=== PATIENT | male | born 1950 | race Caucasian/White ===

== ENCOUNTER 2017-09-08 11:34 | Inpatient (IN) | payer MEDICARE, OTHER ==
[~2017-09-08] VITALS: Ht 172.7 cm; Wt 178.3 kg
[~2017-09-08 11:34] MED LIST: LASIX40 MG PO; LEVAQUIN500 MG PO; LEVEMIR 10100 UNIT/1 SC; LISINOPRIL-HCT1 EAC3 PO; RISPERDAL PO; SYMBICORT 160-4.6 GM IH; TESSALON PERLE100 MG; Z.0.COUMADIN10 MG PO; Z.0.DIGOXIN250 MCG PO; Z.0.FUROSEMIDE40 MG PO; Z.0.GLUCOPHAGE500 MG PO; Z.0.HUMALOG100 UNIT/ SQ; Z.0.LANTUS100 UNIT/1 SQ; Z.0.LEVEMIR 3M100 UN SQ; Z.0.LEVOTHYROXINE100; Z.0.LEVOTHYROXINE25 PO; Z.0.LISINOPRIL10 MG PO; Z.0.LISINOPRIL20 MG PO; Z.0.MULTAQ400 MG PO; Z.0.NEURONTIN300 MG PO; Z.0.SEROQUEL25 MG PO; Z.0.SOTALOL80 MG PO; Z.0.XANAX0.5 MG PO; [UNRECOGNIZED DRUG - CODE] IH; [UNRECOGNIZED DRUG - OTHER] SQ
--- NOTE | 2017-09-08 13:35 | Diagnostic Imaging Report ---
EXAMINATION: Chest, CHEST SINGLE (PORTABLE) INDICATION: Chest pain COMPARISON: Portable chest 12/04/2012 FINDINGS: Examination is limited by grid cut off of the right hemithorax. LINES: None. Heart: Normal cardiac silhouette. Vascular: The pulmonary vasculature is within normal limits. Atherosclerotic calcifications of the aortic arch. Mediastinum: No mediastinal, hilar, or axillary mass or lymphadenopathy. Lungs: No parenchymal mass. No focal consolidation. Right lung base atelectasis. Pleura: No pleural effusion. No pneumothorax. Bones: No acute osseous abnormality. Degenerative changes of the thoracic spine. Soft tissues: Normal. Impression: No acute radiographic abnormality. Signed by: Dr. Donovan Aly M.D. on 09/08/2017 1:31 PM
[2017-09-08 14:11] LABS: BASOPHILS # (AUTO) 0.1 (0.0-0.1); BASOPHILS % 0.8 % (0.0-1.0); EOSINOPHILS # (AUTO) 0.1 (0.0-0.4); EOSINOPHILS % 2.2 % (0.0-6.0); HEMOGLOBIN 12.1 g/dL (14.0-18.0); LYMPHOCYTES % 30.9 % (18.0-39.1); MEAN CORPUSCULAR HEMOGLOBIN 31.5 pg (28-32); MEAN CORPUSCULAR HGB CONC 32.7 g/dL (31-35); MEAN CORPUSCULAR VOLUME 96.4 fL (81-99); MONOCYTES # (AUTO) 0.5 (0.2-0.8); MONOCYTES % 7.4 % (4.4-11.3); NEUTROPHILS # (AUTO) 3.8 (2.1-6.9); NEUTROPHILS % 57.8 % (38.7-80.0); PLATELET COUNT 223 x10e3/uL (140-360); RED BLOOD COUNT 3.84 x10e6/uL (4.3-5.7); RED CELL DISTRIBUTION WIDTH 16.9 % (11.7-14.4)
[2017-09-08 14:22] LABS: INR 1.07; PROTHROMBIN TIME 14.5 seconds (11.9-14.5)
[2017-09-08 14:23] LABS: PARTIAL THROMBOPLASTIN TIME 36.7 seconds (23.8-35.5)
[2017-09-08 14:33] LABS: ALBUMIN 2.6 g/dL (3.5-5.0); ALBUMIN/GLOBULIN RATIO 0.6 (0.8-2.0); ANION GAP 14.2 mmol/L (8-16); CALCIUM 8.9 mg/dL (8.4-10.2); CREATININE, SERUM 1.43 mg/dL (0.72-1.25); POTASSIUM 4.2 mmol/L (3.5-5.1)
[2017-09-08] MEDS ORDERED: ELIQUIS PO (14:42)
[2017-09-08 14:59] LABS: KETONES,URINE TRACE (NEGATIVE); LEUKOCYTE ESTERASE ,URINE TRACE (NEGATIVE); NITRITE,URINE NEGATIVE (NEGATIVE); URINE UROBILINOGEN 0.2 mg/dL (0.2 - 1)
[2017-09-08 15:01] LABS: BILIRUBIN,URINE 1+ (NEGATIVE); CLARITY,URINE HAZY (CLEAR); COLOR,URINE YELLOW (YELLOW); PROTEIN,URINE DIPSTICK 1+ (NEGATIVE)
[2017-09-08] MEDS ORDERED: NORCO 10-325 T1 EACH PO (15:16)
[2017-09-08 15:18] LABS: RBC,URINE 21-50 /HPF (0-5)
[2017-09-08 15:20] LABS: AMORPHOUS SEDIMENT,URINE FEW (FEW); BACTERIA,URINE FEW /HPF; EPITHELIAL CELLS,URINE FEW /LPF
[2017-09-08] MEDS ORDERED: SODIUM CHLORIDE FLUSH 10 ML SYR INJ PRN (15:45)
[2017-09-08] MEDS ORDERED: DEXTROSE 50% SYRINGE 50 ML IV PRN (16:00)
[2017-09-08] MEDS ORDERED: HYDROCODONE/APAP 10MG-325MG TAB PO ONE (16:00)
[2017-09-08] MEDS ORDERED: LEVOFLOXACIN 500MG/D5W 100ML 100 ML IV ONE (16:15)
--- OUTSIDE RECORDS SUMMARY | 2017-09-08 16:17 | XMS REPORT ---
Author Author [facility] Address Unknown Phone Unavailable Care Team Providers Care Family Member Caretaker Name Role Phone CARINA MACIAS Unavailable Unavailable Problems This patient has no known problems. Allergies, Adverse Reactions, Alerts This patient has no known allergies or adverse reactions. Medications This patient has no known medications. Results Test Description Test Time Test Comments Text Results Atomic Results Result Comments CHEST SINGLE (PORTABLE) [place] [address] Patient Name: PAULINA LARA MR #: [id number] : 1950 Age/Sex: 67/M Req #: [id number] Adm Physician: Ordered by: CARINA MACIAS MD Report #: [id number] Location: ER Room/Bed: Procedure: [id number] DX/CHEST SINGLE (PORTABLE) Exam Date: 09/08/17 Exam Time: 1300 REPORT STATUS: Signed EXAMINATION: Chest, CHEST SINGLE (PORTABLE) INDICATION: Chest pain COMPARISON : Portable chest 12/04/2012 FINDINGS: Examination is limited by grid cut off of the right hemithorax. LINES: None. Heart: Normal cardiac silhouette. Vascular: The pulmonary vasculature is within normal limits. Atherosclerotic calcifications of the aortic arch. Mediastinum: No mediastinal, hilar, or axillary mass or lymphadenopathy. Lungs: No parenchymal mass. No focal consolidation. Right lung base atelectasis. Pleura: No pleural effusion. No pneumothorax. Bones: No acute osseous abnormality. Degenerative changes of the thoracic spine. Soft tissues: Normal. Impression: No acute radiographic abnormality. Signed by: Dr. Landon Mckenna M.D. on 09/08/2017 1:31 PM Dictated By: LANDON MCKENNA MD 1331 Transcribed By: SHAUN on 09/08/17 1331 COPY TO: CARINA MACIAS MD
[2017-09-08] MEDS: INSULIN REGULAR, HUMAN 100 UNIT/1 ML 3ML VIAL SQ SCH ×2 (16:30→22:34)
[2017-09-08] MEDS: METHYLPREDNISOLONE SOD SUCC 40 MG/ML VIAL IV SCH (16:39)
[2017-09-08 18:00] VITALS: BP 137/67
[2017-09-08] MEDS ORDERED: NYSTATIN 15 GM POWDER UD BTL TOP PRN (18:45)
[2017-09-08] MEDS ORDERED: ACETAMINOPHEN 325 MG TAB PO PRN (18:45)
[2017-09-08] MEDS ORDERED: IPRATROPIUM BROMIDE 0.02% 2.5 ML NEB NEB SCH (19:00)
[2017-09-08 19:08] VITALS: BP 137/67
[2017-09-08 19:16] VITALS: BP 137/67
[2017-09-08] MEDS: ALBUTEROL/IPRATROPIUM 3 ML NEB NEB SCH (19:34)
[2017-09-08 20:00] VITALS: BP 140/73
[2017-09-08] MEDS: ZOLPIDEM TARTRATE 5 MG TAB PO PRN (20:54)
[2017-09-08] MEDS: HYDROMORPHONE 2MG/ML INJ IV PRN (20:54)
[2017-09-08 22:32] VITALS: BP 140/73
[2017-09-09] VITALS: BP 119/62
[2017-09-09] MEDS: METHYLPREDNISOLONE SOD SUCC 40 MG/ML VIAL IV SCH ×3 (00:09→21:00)
[2017-09-09] MEDS: HYDROMORPHONE 2MG/ML INJ IV PRN ×7 (01:13→21:01)
[2017-09-09] MEDS: ALBUTEROL/IPRATROPIUM 3 ML NEB NEB SCH ×4 (01:30→19:35)
[2017-09-09 04:00] VITALS: BP 139/78
[2017-09-09] MEDS: INSULIN REGULAR, HUMAN 100 UNIT/1 ML 3ML VIAL SQ SCH ×4 (07:30→22:30)
[2017-09-09] MEDS: ONDANSETRON HCL INJ 2 MG/ML VIAL IV PRN ×2 (08:20→15:20)
[2017-09-09] MEDS ORDERED: FUROSEMIDE INJ 10 MG/ML 4 ML VIAL IV SCH (09:00)
[2017-09-09] MEDS ORDERED: HYDRALAZINE HCL 20 MG/ML VIAL IV PRN (10:30)
[2017-09-09] MEDS: NYSTATIN 15 GM POWDER UD BTL TOP SCH ×2 (10:33→17:48)
[2017-09-09 12:00] VITALS: BP 149/73
--- NOTE | 2017-09-09 12:28 | History and Physical ---
CHIEF COMPLAINT: Shortness of breath and wheezing. HISTORY OF PRESENT ILLNESS: This is a 67-year-old morbidly obese male with past medical history of COPD, obstructive sleep apnea, hypoventilation syndrome due to obesity, has significant pannus with infection, who was recently discharged from [facility] due to underlying COPD exacerbation. Patient now presents with increased shortness of breath and edema since his discharge. Patient now is reporting feeling much better after giving some diuretics, antibiotics, and steroids. He denies any chest pain, palpitations, nausea, or vomiting. He does report having a history of COPD. He denies any fever at home or any other complaints. The patient is seen and evaluated at bedside on the medical floor, currently doing much better with no other complaints. REVIEW OF SYSTEMS: Pertinent positives: Shortness of breath, wheezing, edema, and redness in the pannus. Pertinent negatives: Denies any chest pain, palpitation, nausea, vomiting, diarrhea, dysuria, hematuria, frequency or urgency, lightheadedness, dizziness, abdominal pain, headache, fever, or any other complaints. The rest of the 14-point review of systems reviewed with the patient and is negative. ALLERGIES: FLUCONAZOLE AND SULFA DRUGS. HOME MEDICATIONS: Digoxin 250 mcg daily, amiodarone 400 mg daily, Lasix 20 mg b.i.d., gabapentin 300 mg b.i.d., Levemir 60 units subcu in the morning and at bedtime, levothyroxine 25 mcg daily, lisinopril 200 mg daily, and Seroquel 25 mg p.o. at bedtime. PAST MEDICAL HISTORY: Diabetes, hypertension, morbidly obese, huge pannus, and edema. PAST SURGICAL HISTORY: He had multiple debridements. FAMILY HISTORY: Hypertension and diabetes. SOCIAL HISTORY: Lives alone. Denies any smoking, drugs, or any alcohol history. PHYSICAL EXAMINATION VITAL SIGNS: Temperature is 96.4, pulse 89, respiratory rate is 20, blood pressure is 139/78, and pulse ox 98% on 3 liters nasal cannula. GENERAL: Not in acute distress. Alert and oriented x3, cooperative on examination, morbidly obese. HEENT: Head is normocephalic and atraumatic. Eyes; pupils are equal, round, and reactive to light bilaterally. Extraocular movements intact bilaterally. Throat with no evidence of any erythema or exudates in the posterior pharynx. She has poor dentition. NECK: Supple with good range of motion. PULMONARY: Clear to auscultation bilaterally. No wheezing, no rales, no rhonchi, and no crackles appreciated. CARDIOVASCULAR: Positive S1 and S2. No murmurs, rubs, or gallops appreciated. ABDOMEN: Soft, nondistended, and nontender to palpation. Bowel sounds present. MUSCULOSKELETAL: Strength 5/5 throughout. No evidence of any musculoskeletal deficit on exam. No weakness appreciated. NEUROLOGIC: Cranial nerves II through XII grossly intact. No evidence of any neurologic deficit on exam. SKIN: Intact. He has significant redness in pannus with erythema underneath the folds of his abdomen. PSYCHIATRIC: Normal affect and mood. EXTREMITIES: 1+ to 2+ pedal edema. Good range of motion throughout. LABORATORY DATA: His lab findings show white count 6.5, hemoglobin 12, hematocrit 37, and platelets are 223. Coagulations are normal. Chemistry: Sodium is 140, potassium 4.2, chloride 100, bicarb 30, anion gap of 14, BUN is 17, creatinine is 1.4, and glucose point of care is 312, and LFTs were normal. His albumin was 2.6. His urinalysis was possible underlying UTI, wbc's 11 to 20, rbc's 21 to 50. Microbiology; urine culture shows gram-negative rods. Blood cultures pending. Wound cultures pending. IMAGING STUDIES: Chest x-ray no radiographic abnormality. IMPRESSION 1. Acute exacerbation of chronic obstructive pulmonary disease -- pulmonary consult, steroids, neb treatments, antibiotics. 2. Cellulitis and abdominal wall where the fat folds are -- wound care consulted. IV antibiotics. ID consulted. 3. Type 2 diabetes, long-acting Levemir and insulin sliding scale. 4. Hypertension -- stable. Continue same home medications, p.r.n. hydralazine. 5. Morbidly obese/obstructive sleep apnea -- BiPAP at bedside for sleep. 6. Prophylaxis will be Lovenox. 7. Fluids, electrolytes, nutrition -- no IV fluids, diabetic diet. 8. Disposition -- inpatient, pulmonary, ID, and wound care have been consulted. Job#: [id number] SAK
[2017-09-09] MEDS: FUROSEMIDE INJ 10 MG/ML 4 ML VIAL IV SCH ×2 (12:37→17:56)
[2017-09-09] MEDS: SODIUM CHLORIDE 0.9% IV SCH (13:00)
[2017-09-09] MEDS: VANCOMYCIN HCL IV SCH (13:00)
[2017-09-09] MEDS ORDERED: NOVOLOG MI100 UNIT/1 SQ (13:33)
[2017-09-09] MEDS ORDERED: SODIUM CHLORIDE 0.9% 1000ML 1,000 ML ONE (15:12)
[2017-09-09 16:00] VITALS: BP 165/76
[2017-09-09] MEDS ORDERED: DIPHENHYDRAMINE HCL INJ 50 MG/ML VIAL IV PRN (16:15)
[2017-09-09] MEDS ORDERED: INSULIN ASPART 70/30 100 UNITS/ML VIAL SC SCH (16:30)
[2017-09-09] MEDS: FLUCONAZOLE 200 MG/100 ML 100 ML IV SCH (17:44)
[2017-09-09] MEDS: CEFEPIME HCL 1 GM VIAL IV SCH (17:44)
[2017-09-09] MEDS: GABAPENTIN 300 MG CAP PO SCH (17:48)
[2017-09-09] MEDS: ENOXAPARIN SOD INJ 40 MG/0.4 ML SYR SC SCH (17:52)
[2017-09-09] MEDS ORDERED: DEXTROSE 50% SYRINGE 50 ML IV PRN (18:15)
[2017-09-09 20:00] VITALS: BP 159/87
[2017-09-09] MEDS: QUETIAPINE FUMARATE 25 MG TAB PO SCH (21:01)
[2017-09-09] MEDS: ZOLPIDEM TARTRATE 5 MG TAB PO PRN (22:40)
[2017-09-10] VITALS (7 sets, daily range): BP systolic 108–169; BP diastolic 56–90
[2017-09-10] MEDS: SODIUM CHLORIDE 0.9% IV SCH ×2 (00:22→13:08)
[2017-09-10] MEDS: VANCOMYCIN HCL IV SCH ×2 (00:22→13:08)
[2017-09-10] MEDS: ALBUTEROL/IPRATROPIUM 3 ML NEB NEB SCH ×4 (01:15→19:27)
[2017-09-10] MEDS: CEFEPIME HCL 1 GM VIAL IV SCH ×2 (03:22→14:50)
--- NOTE | 2017-09-10 04:34 | Consultation ---
DATE OF CONSULTATION: WOUND CONSULTATION Thank you, Dr. Wyatt, for asking me to see this patient known to me at [facility]. Patient had recurrent hospitalization for the past few months. He was admitted with severe hyperkeratotic lesion to the suprapubic area, lower abdomen and lower extremities with cellulitis infection. He was treated with antibiotics. During previous hospitalization, the patient developed an ulcer to the abdominal fold. Was treated and he came back to the ER with shortness of breath. However, he also has developed multiple ulcerations to the abdominal fold on the left side with full-thickness ulcerations. Patient is morbidly obese, and needs 2-3 people to lift his abdomen for examining or to do wound care. PAST MEDICAL HISTORY: Morbid obesity, COPD, hyperventilation syndrome, hypersomnia, obstructive sleep apnea, psoriasis, diabetes mellitus, chronic anxiety, hypothyroidism. MEDICATIONS 1. 0.5 mg 3 times daily. 2. Gabapentin 300 mg twice daily. 3. Metformin 500 mg twice daily. 4. Warfarin 10 mg daily. 5. Lispro 100 mg daily. 6. Multaq 400 mg daily. 7. Seroquel 25 mg at bedtime. 8. Digoxin 250 mcg daily. 9. Symbicort 1 inhalation twice daily. 10. Lasix 40 mg daily. 11. Levothyroxine 25 mcg daily. 12. Levemir 25 units daily. 13. Lisinopril 20 mg daily. 14. Levemir 24 units at bedtime. PHYSICAL EXAMINATION VITALS: Blood pressure 147/65, pulse oximetry 100%, temperature 98.9, pulse 91, weight 402 pounds, height 5 feet 8 inches. HEENT: Normal. NECK: Normal. LUNGS: Bilaterally clear. ABDOMEN: Soft and protuberant. LOWER EXTREMITIES: Trace edema present. SKIN: On the abdominal fold crease, the patient has multiple wounds from the left to the right side of the abdomen. Left side wound is bigger and painful with cellulitis and candidal intertrigo. In the suprapubic area, the patient has hyperkeratosis from seborrhea and psoriasis. ASSESSMENT: Ulcer to the abdominal wall secondary to friction dermatitis and candidal intertrigo secondary to morbid obesity. PLAN: Will apply Maxorb to the wound and Diflucan 200 mg IV. Extremely difficult to treat this wound due to his comorbid conditions, including morbid obesity and frequent antibiotic use for his other medical problems. Explained to the patient that the wound is getting deeper and may complicate to sepsis if he does not lose weight Job#: [id number] JULIO C
--- NOTE | 2017-09-10 05:25 | Consultation ---
DATE OF CONSULTATION: PULMONARY CRITICAL CARE CONSULTATION REFERRING PHYSICIAN: Dr. Dooley CHIEF COMPLAINT: [id number] respiratory problems with obesity hypoventilation syndrome. HISTORY OF PRESENT ILLNESS: Patient is a 67-year-old man. He has a history of obesity hypoventilation syndrome and diabetes. He has required multiple hospitalizations over the last couple of years. Most recently he was at [facility] for 28 days with pneumonia and worsening dyspnea. He also required intubation briefly. His hospitalization was further complicated by hyperglycemia, as well as fungal infections and wounds in the groin area. After being released from [facility], he had difficulty standing and felt unstable on his feet. He complains of worsening dyspnea and congestion. He did not have any fevers. He did not complain of chest pain. PAST MEDICAL HISTORY 1. Diabetes. 2. Zofch-wi-urujsoo respiratory failure. 3. Obesity hypoventilation syndrome. 4. Hypertension. PAST SURGICAL HISTORY: Noncontributory. SOCIAL HISTORY: The patient is not a smoker or drinker. He is here with his son. He lives in [place]. FAMILY HISTORY: The patient has no significant family history. REVIEW OF SYSTEMS: There are no fevers. He has no headache. He has no neck pain. He is with chest pain. He does complain of some congestion and difficulty breathing. There is no abdominal pain. He has no nausea or vomiting. He does have some leg edema. He has a monilia infection in his groin, as well as poorly healing ulceration under the pannus of his abdomen. PHYSICAL EXAMINATION VITAL SIGNS: Stable. HEENT: Shows no facial swelling or erythema. Nasal mucosa is normal. Oropharynx is normal. LYMPHATIC: Shows no submandibular, cervical or suprapubic adenopathy. CARDIAC: Reveals a regular rate and rhythm with normal S1 and S2. There are no murmurs or rubs. LUNGS: Auscultation of the lungs reveals rhonchus breath sounds bilaterally. There is no wheezing. ABDOMEN: Soft and nontender. There is no rebound or guarding. EXTREMITIES: Shows 1-2+ leg edema. The patient has monilia rash in the groin and underneath his pannus. IMPRESSION 1. Mekpj-ox-xlrinlo respiratory failure. 2. Obesity hypoventilation syndrome. 3. Diabetes. 4. Monilia with ulceration in the inguinal area. 5. Hypertension. PLAN 1. Patient will need a baseline ABG. 2. He may require some type of CPAP or BiPAP at night. 3. Physical therapy will be required to help the patient gain his strength back. 4. Nutritional evaluation. 5. Adjust diabetic medications. Job#: [id number] JULIO C
[2017-09-10] MEDS: FUROSEMIDE INJ 10 MG/ML 4 ML VIAL IV SCH ×4 (06:07→18:00)
[2017-09-10 06:58] LABS: BASOPHILS % 0.1 % (0.0-1.0); HEMATOCRIT 36.7 % (38.2-49.6); HEMOGLOBIN 12.1 g/dL (14.0-18.0); LYMPHOCYTES # (AUTO) 1.2 (1.0-3.2); LYMPHOCYTES % 16.6 % (18.0-39.1); MEAN CORPUSCULAR HEMOGLOBIN 31.9 pg (28-32); MEAN CORPUSCULAR VOLUME 96.8 fL (81-99); MONOCYTES # (AUTO) 0.4 (0.2-0.8); MONOCYTES % 5.1 % (4.4-11.3); NEUTROPHILS # (AUTO) 5.5 (2.1-6.9); NEUTROPHILS % 77.1 % (38.7-80.0); PLATELET COUNT 258 x10e3/uL (140-360); RED BLOOD COUNT 3.79 x10e6/uL (4.3-5.7); RED CELL DISTRIBUTION WIDTH 16.5 % (11.7-14.4)
[2017-09-10] MEDS: HYDROMORPHONE 2MG/ML INJ IV PRN ×4 (06:58→21:46)
[2017-09-10 07:27] LABS: ALBUMIN 2.7 g/dL (3.5-5.0); ALBUMIN/GLOBULIN RATIO 0.6 (0.8-2.0); ANION GAP 15.7 mmol/L (8-16); CALCIUM 8.9 mg/dL (8.4-10.2); CREATININE, SERUM 1.42 mg/dL (0.72-1.25); MAGNESIUM 1.7 MG/DL (1.3-2.1); POTASSIUM 4.7 mmol/L (3.5-5.1)
[2017-09-10] MEDS: INSULIN REGULAR, HUMAN 100 UNIT/1 ML 3ML VIAL SQ SCH ×4 (07:30→21:47)
[2017-09-10] MEDS: INSULIN DETEMIR 100 UNIT/ML PEN SQ SCH (07:30)
[2017-09-10] MEDS: GABAPENTIN 300 MG CAP PO SCH ×2 (09:00→17:00)
[2017-09-10] MEDS: DIGOXIN 0.25 MG TAB PO SCH (09:00)
[2017-09-10] MEDS: DRONEDARONE 400 MG TAB PO SCH (09:00)
[2017-09-10] MEDS: LISINOPRIL 20 MG TAB PO SCH (09:00)
[2017-09-10] MEDS: METHYLPREDNISOLONE SOD SUCC 40 MG/ML VIAL IV SCH (09:00)
[2017-09-10] MEDS: LEVOTHYROXINE SODIUM 25 MCG TABLET PO SCH (09:00)
[2017-09-10] MEDS: NYSTATIN/TRIAMCINOLONE 15 GM CR TOP SCH (10:15)
[2017-09-10] MEDS: NYSTATIN 15 GM POWDER UD BTL TOP SCH ×2 (10:15→17:00)
[2017-09-10] MEDS: ONDANSETRON HCL INJ 2 MG/ML VIAL IV PRN ×3 (11:35→21:46)
[2017-09-10] MEDS: FLUCONAZOLE 200 MG/100 ML 100 ML IV SCH (14:51)
[2017-09-10] MEDS: ENOXAPARIN SOD INJ 40 MG/0.4 ML SYR SC SCH (17:00)
[2017-09-10] MEDS: QUETIAPINE FUMARATE 25 MG TAB PO SCH (21:46)
[2017-09-11] VITALS (7 sets, daily range): BP systolic 107–138; BP diastolic 57–77
[2017-09-11] MEDS: FUROSEMIDE INJ 10 MG/ML 4 ML VIAL IV SCH
[2017-09-11] MEDS: ONDANSETRON HCL INJ 2 MG/ML VIAL IV PRN ×2 (00:45→04:52)
[2017-09-11] MEDS: HYDROMORPHONE 2MG/ML INJ IV PRN ×5 (00:48→18:12)
[2017-09-11] MEDS: VANCOMYCIN HCL IV SCH (01:00)
[2017-09-11] MEDS: SODIUM CHLORIDE 0.9% IV SCH (01:00)
[2017-09-11] MEDS: ALBUTEROL/IPRATROPIUM 3 ML NEB NEB SCH ×4 (01:25→19:15)
[2017-09-11] MEDS: CEFEPIME HCL 1 GM VIAL IV SCH ×2 (02:31→15:35)
[2017-09-11] MEDS: INSULIN REGULAR, HUMAN 100 UNIT/1 ML 3ML VIAL SQ SCH ×4 (09:42→21:27)
[2017-09-11] MEDS: INSULIN DETEMIR 100 UNIT/ML PEN SQ SCH (09:44)
[2017-09-11] MEDS: METHYLPREDNISOLONE SOD SUCC 40 MG/ML VIAL IV SCH (09:44)
[2017-09-11] MEDS: DRONEDARONE 400 MG TAB PO SCH (09:44)
[2017-09-11] MEDS: GABAPENTIN 300 MG CAP PO SCH ×2 (09:44→16:59)
[2017-09-11] MEDS: DIGOXIN 0.25 MG TAB PO SCH (09:44)
[2017-09-11] MEDS: LEVOTHYROXINE SODIUM 25 MCG TABLET PO SCH (09:45)
[2017-09-11] MEDS: LISINOPRIL 20 MG TAB PO SCH (09:45)
[2017-09-11] MEDS: NYSTATIN/TRIAMCINOLONE 15 GM CR TOP SCH (11:46)
[2017-09-11] MEDS: NYSTATIN 15 GM POWDER UD BTL TOP SCH ×2 (11:46→17:00)
[2017-09-11] MEDS: FLUCONAZOLE 200 MG/100 ML 100 ML IV SCH (15:35)
[2017-09-11] MEDS: ENOXAPARIN SOD INJ 40 MG/0.4 ML SYR SC SCH (16:59)
[2017-09-11] MEDS: VANCOMYCIN 1GM/NS 250 ML 250 ML IV SCH (21:25)
[2017-09-11] MEDS: QUETIAPINE FUMARATE 25 MG TAB PO SCH (21:25)
[2017-09-12] MEDS: HYDROMORPHONE 2MG/ML INJ IV PRN ×4 (00:40→20:32)
[2017-09-12] MEDS: ALBUTEROL/IPRATROPIUM 3 ML NEB NEB SCH ×4 (01:22→19:40)
[2017-09-12] MEDS: CEFEPIME HCL 1 GM VIAL IV SCH ×2 (02:17→16:00)
[2017-09-12 04:52] VITALS: BP 124/86
[2017-09-12] MEDS: INSULIN REGULAR, HUMAN 100 UNIT/1 ML 3ML VIAL SQ SCH ×4 (07:45→23:35)
[2017-09-12] MEDS: INSULIN DETEMIR 100 UNIT/ML PEN SQ SCH (07:45)
[2017-09-12 08:00] VITALS: BP 146/100
[2017-09-12] MEDS: METHYLPREDNISOLONE SOD SUCC 40 MG/ML VIAL IV SCH (08:15)
[2017-09-12] MEDS: DIGOXIN 0.25 MG TAB PO SCH (08:30)
[2017-09-12] MEDS: NYSTATIN 15 GM POWDER UD BTL TOP SCH ×2 (08:45→17:30)
[2017-09-12] MEDS: NYSTATIN/TRIAMCINOLONE 15 GM CR TOP SCH (08:45)
[2017-09-12] MEDS: LISINOPRIL 20 MG TAB PO SCH (08:45)
[2017-09-12] MEDS: LEVOTHYROXINE SODIUM 25 MCG TABLET PO SCH (08:45)
[2017-09-12] MEDS: DRONEDARONE 400 MG TAB PO SCH (08:45)
[2017-09-12] MEDS: GABAPENTIN 300 MG CAP PO SCH ×2 (08:45→17:30)
[2017-09-12 12:00] VITALS: BP 155/75
[2017-09-12] MEDS: VANCOMYCIN 1GM/NS 250 ML 250 ML IV SCH ×2 (12:00→20:31)
[2017-09-12 16:00] VITALS: BP 141/80
[2017-09-12] MEDS: FLUCONAZOLE 200 MG/100 ML 100 ML IV SCH (16:00)
[2017-09-12] MEDS: ENOXAPARIN SOD INJ 40 MG/0.4 ML SYR SC SCH (17:30)
[2017-09-12] MEDS: QUETIAPINE FUMARATE 25 MG TAB PO SCH (20:31)
[2017-09-12 22:48] VITALS: BP 130/95
[2017-09-13] MEDS: ALBUTEROL/IPRATROPIUM 3 ML NEB NEB SCH ×4 (01:20→19:50)
[2017-09-13 02:01] VITALS: BP 140/78
[2017-09-13] MEDS: CEFEPIME HCL 1 GM VIAL IV SCH ×2 (02:01→15:00)
[2017-09-13] MEDS: HYDROMORPHONE 2MG/ML INJ IV PRN ×7 (03:29→23:44)
[2017-09-13 06:10] VITALS: BP 161/95
[2017-09-13 06:48] LABS: BASOPHILS % 0.4 % (0.0-1.0); HEMATOCRIT 35.8 % (38.2-49.6); HEMOGLOBIN 11.6 g/dL (14.0-18.0); LYMPHOCYTES # (AUTO) 1.1 (1.0-3.2); LYMPHOCYTES % 13.9 % (18.0-39.1); MEAN CORPUSCULAR HEMOGLOBIN 31.8 pg (28-32); MEAN CORPUSCULAR HGB CONC 32.4 g/dL (31-35); MEAN CORPUSCULAR VOLUME 98.1 fL (81-99); MONOCYTES # (AUTO) 0.9 (0.2-0.8); MONOCYTES % 12.2 % (4.4-11.3); NEUTROPHILS # (AUTO) 5.2 (2.1-6.9); NEUTROPHILS % 68.9 % (38.7-80.0); PLATELET COUNT 264 x10e3/uL (140-360); RED BLOOD COUNT 3.65 x10e6/uL (4.3-5.7); RED CELL DISTRIBUTION WIDTH 16.6 % (11.7-14.4)
[2017-09-13 07:10] LABS: ALBUMIN 2.7 g/dL (3.5-5.0); ALBUMIN/GLOBULIN RATIO 0.7 (0.8-2.0); ANION GAP 13.9 mmol/L (8-16); CALCIUM 8.9 mg/dL (8.4-10.2); CREATININE, SERUM 1.27 mg/dL (0.72-1.25); POTASSIUM 4.9 mmol/L (3.5-5.1)
[2017-09-13] MEDS: INSULIN DETEMIR 100 UNIT/ML PEN SQ SCH (07:50)
[2017-09-13] MEDS: INSULIN REGULAR, HUMAN 100 UNIT/1 ML 3ML VIAL SQ SCH ×4 (07:50→20:59)
[2017-09-13 08:00] VITALS: BP 172/92
[2017-09-13 08:13] LABS: ANISOCYTOSIS SLIGHT; LYMPHOCYTES % (MANUAL) 17 % (19-48); METAMYELOCYTES % (MANUAL) 2 % (0-0); MONOCYTES % (MANUAL) 7 % (3.4-9.0); MYELOCYTES % (MANUAL) 2 % (0-0); NEUTROPHILS % (MANUAL) 71 % (40-74); NUCLEATED RED BLOOD CELLS 1; PLATELET ESTIMATE ADEQUATE; PLATELET MORPHOLOGY COMMENT NORMAL; RBC MORPHOLOGY COMMENT NORMAL
[2017-09-13] MEDS: DRONEDARONE 400 MG TAB PO SCH (08:15)
[2017-09-13] MEDS: LEVOTHYROXINE SODIUM 25 MCG TABLET PO SCH (08:15)
[2017-09-13] MEDS: LISINOPRIL 20 MG TAB PO SCH (08:15)
[2017-09-13] MEDS: NYSTATIN 15 GM POWDER UD BTL TOP SCH ×2 (08:15→17:15)
[2017-09-13] MEDS: NYSTATIN/TRIAMCINOLONE 15 GM CR TOP SCH (08:15)
[2017-09-13] MEDS: VANCOMYCIN 1GM/NS 250 ML 250 ML IV SCH ×2 (08:15→21:16)
[2017-09-13] MEDS: DIGOXIN 0.25 MG TAB PO SCH (08:15)
[2017-09-13] MEDS: GABAPENTIN 300 MG CAP PO SCH ×2 (08:15→17:15)
[2017-09-13] MEDS: HYDROCORTISONE SOD SUCCINATE 100 MG VIAL IV SCH (08:15)
[2017-09-13] MEDS: FAMOTIDINE 20 MG TAB PO SCH ×2 (09:40→15:29)
[2017-09-13] MEDS: FUROSEMIDE INJ 10 MG/ML 4 ML VIAL IV SCH ×2 (09:40→21:00)
[2017-09-13] MEDS: MAGNESIUM/ALUMINUM/SIMETHICONE 30 ML UDC PO PRN ×2 (10:24→23:44)
[2017-09-13 11:39] VITALS: BP 172/86
[2017-09-13] MEDS: FLUCONAZOLE 200 MG/100 ML 100 ML IV SCH (15:30)
[2017-09-13 16:05] VITALS: BP 142/82
[2017-09-13] MEDS: ENOXAPARIN SOD INJ 40 MG/0.4 ML SYR SC SCH (17:15)
[2017-09-13 20:00] VITALS: BP 133/79
[2017-09-13] MEDS: QUETIAPINE FUMARATE 25 MG TAB PO SCH (21:16)
[2017-09-14] VITALS (8 sets, daily range): BP systolic 132–173; BP diastolic 61–92
[2017-09-14] MEDS: ALBUTEROL/IPRATROPIUM 3 ML NEB NEB SCH ×4 (01:45→18:50)
[2017-09-14] MEDS: CEFEPIME HCL 1 GM VIAL IV SCH ×2 (03:22→14:34)
[2017-09-14] MEDS: HYDROMORPHONE 2MG/ML INJ IV PRN ×5 (04:45→21:15)
[2017-09-14] MEDS: LEVOTHYROXINE SODIUM 25 MCG TABLET PO SCH (05:11)
[2017-09-14 07:26] LABS: BASOPHILS # (AUTO) 0.1 (0.0-0.1); BASOPHILS % 0.7 % (0.0-1.0); EOSINOPHILS # (AUTO) 0.1 (0.0-0.4); EOSINOPHILS % 1.5 % (0.0-6.0); HEMATOCRIT 35.5 % (38.2-49.6); HEMOGLOBIN 11.5 g/dL (14.0-18.0); LYMPHOCYTES # (AUTO) 1.6 (1.0-3.2); LYMPHOCYTES % 22.6 % (18.0-39.1); MEAN CORPUSCULAR HEMOGLOBIN 31.9 pg (28-32); MEAN CORPUSCULAR HGB CONC 32.4 g/dL (31-35); MEAN CORPUSCULAR VOLUME 98.6 fL (81-99); MONOCYTES # (AUTO) 0.9 (0.2-0.8); NEUTROPHILS # (AUTO) 4.2 (2.1-6.9); PLATELET COUNT 245 x10e3/uL (140-360); RED CELL DISTRIBUTION WIDTH 17.1 % (11.7-14.4)
[2017-09-14] MEDS: INSULIN REGULAR, HUMAN 100 UNIT/1 ML 3ML VIAL SQ SCH ×4 (07:30→21:00)
[2017-09-14] MEDS: INSULIN DETEMIR 100 UNIT/ML PEN SQ SCH (07:30)
[2017-09-14 07:45] LABS: ANION GAP 11.9 mmol/L (8-16); CALCIUM 8.5 mg/dL (8.4-10.2); CREATININE, SERUM 1.28 mg/dL (0.72-1.25); POTASSIUM 4.9 mmol/L (3.5-5.1)
[2017-09-14] MEDS: GABAPENTIN 300 MG CAP PO SCH ×2 (08:25→17:41)
[2017-09-14] MEDS: FAMOTIDINE 20 MG TAB PO SCH ×2 (08:25→17:41)
[2017-09-14] MEDS: DRONEDARONE 400 MG TAB PO SCH (08:25)
[2017-09-14] MEDS: NYSTATIN 15 GM POWDER UD BTL TOP SCH ×2 (08:25→17:41)
[2017-09-14] MEDS: HYDROCORTISONE SOD SUCCINATE 100 MG VIAL IV SCH (08:25)
[2017-09-14] MEDS: LISINOPRIL 20 MG TAB PO SCH (08:25)
[2017-09-14] MEDS: FUROSEMIDE INJ 10 MG/ML 4 ML VIAL IV SCH ×2 (08:25→21:00)
[2017-09-14] MEDS: NYSTATIN/TRIAMCINOLONE 15 GM CR TOP SCH (08:25)
[2017-09-14] MEDS: DIGOXIN 0.25 MG TAB PO SCH (08:25)
[2017-09-14 08:59] LABS: EOSINOPHILS % (MANUAL) 2 % (0-7); LYMPHOCYTES % (MANUAL) 19 % (19-48); METAMYELOCYTES % (MANUAL) 1 % (0-0); MONOCYTES % (MANUAL) 13 % (3.4-9.0); NEUTROPHILS % (MANUAL) 65 % (40-74); PLATELET ESTIMATE ADEQUATE; PLATELET MORPHOLOGY COMMENT NORMAL; RBC MORPHOLOGY COMMENT NORMAL
[2017-09-14 09:00] LABS: ANISOCYTOSIS SLIGHT; HYPOCHROMASIA SLIG; MICROCYTOSIS SLIG; POLYCHROMASIA FEW
[2017-09-14] MEDS: VANCOMYCIN 1GM/NS 250 ML 250 ML IV SCH ×2 (09:00→20:00)
[2017-09-14] MEDS: FLUCONAZOLE 200 MG/100 ML 100 ML IV SCH (14:34)
[2017-09-14] MEDS: ENOXAPARIN SOD INJ 40 MG/0.4 ML SYR SC SCH (17:41)
[2017-09-14] MEDS: POLYETHYLENE GLYCOL 3350 17 GM PACK PO SCH (17:41)
[2017-09-14] MEDS: QUETIAPINE FUMARATE 25 MG TAB PO SCH (21:00)
[2017-09-15] VITALS (7 sets, daily range): BP systolic 109–151; BP diastolic 54–92
[2017-09-15] MEDS: HYDROMORPHONE 2MG/ML INJ IV PRN ×7 (00:14→20:33)
[2017-09-15] MEDS: ALBUTEROL/IPRATROPIUM 3 ML NEB NEB SCH ×4 (00:45→19:10)
[2017-09-15] MEDS: CEFEPIME HCL 1 GM VIAL IV SCH ×2 (02:45→14:55)
[2017-09-15] MEDS: LEVOTHYROXINE SODIUM 25 MCG TABLET PO SCH (06:00)
[2017-09-15] MEDS: INSULIN DETEMIR 100 UNIT/ML PEN SQ SCH (07:30)
[2017-09-15] MEDS: INSULIN REGULAR, HUMAN 100 UNIT/1 ML 3ML VIAL SQ SCH ×4 (07:30→21:48)
[2017-09-15] MEDS: POLYETHYLENE GLYCOL 3350 17 GM PACK PO SCH (09:00)
[2017-09-15] MEDS: NYSTATIN/TRIAMCINOLONE 15 GM CR TOP SCH (09:06)
[2017-09-15] MEDS: DIGOXIN 0.25 MG TAB PO SCH (09:06)
[2017-09-15] MEDS: GABAPENTIN 300 MG CAP PO SCH ×2 (09:06→16:30)
[2017-09-15] MEDS: HYDROCORTISONE SOD SUCCINATE 100 MG VIAL IV SCH (09:06)
[2017-09-15] MEDS: FAMOTIDINE 20 MG TAB PO SCH ×2 (09:06→16:30)
[2017-09-15] MEDS: LISINOPRIL 20 MG TAB PO SCH (09:06)
[2017-09-15] MEDS: DRONEDARONE 400 MG TAB PO SCH (09:06)
[2017-09-15] MEDS: NYSTATIN 15 GM POWDER UD BTL TOP SCH ×3 (09:06→16:33)
[2017-09-15] MEDS: FUROSEMIDE INJ 10 MG/ML 4 ML VIAL IV SCH ×2 (09:06→20:25)
[2017-09-15] MEDS: FLUCONAZOLE 200 MG/100 ML 100 ML IV SCH (14:55)
[2017-09-15] MEDS: ENOXAPARIN SOD INJ 40 MG/0.4 ML SYR SC SCH (16:31)
[2017-09-15] MEDS: VANCOMYCIN 1GM/NS 250 ML 250 ML IV SCH (20:25)
[2017-09-15] MEDS: QUETIAPINE FUMARATE 25 MG TAB PO SCH (20:25)
[2017-09-16] VITALS (9 sets, daily range): BP systolic 116–139; BP diastolic 55–81
[2017-09-16] MEDS: HYDROMORPHONE 2MG/ML INJ IV PRN ×6 (00:11→21:25)
[2017-09-16] MEDS: CEFEPIME HCL 1 GM VIAL IV SCH (02:13)
[2017-09-16] MEDS: ALBUTEROL/IPRATROPIUM 3 ML NEB NEB SCH ×4 (02:25→20:00)
[2017-09-16] MEDS: LEVOTHYROXINE SODIUM 25 MCG TABLET PO SCH (06:03)
[2017-09-16] MEDS: INSULIN DETEMIR 100 UNIT/ML PEN SQ SCH (07:30)
[2017-09-16] MEDS: INSULIN REGULAR, HUMAN 100 UNIT/1 ML 3ML VIAL SQ SCH ×4 (07:30→21:05)
[2017-09-16] MEDS: FUROSEMIDE INJ 10 MG/ML 4 ML VIAL IV SCH ×2 (08:32→21:00)
[2017-09-16] MEDS: HYDROCORTISONE SOD SUCCINATE 100 MG VIAL IV SCH (08:32)
[2017-09-16] MEDS: FAMOTIDINE 20 MG TAB PO SCH ×2 (08:32→16:46)
[2017-09-16] MEDS: GABAPENTIN 300 MG CAP PO SCH ×2 (08:33→16:46)
[2017-09-16] MEDS: LISINOPRIL 20 MG TAB PO SCH (08:33)
[2017-09-16] MEDS: NYSTATIN/TRIAMCINOLONE 15 GM CR TOP SCH (08:33)
[2017-09-16] MEDS: POLYETHYLENE GLYCOL 3350 17 GM PACK PO SCH (08:33)
[2017-09-16] MEDS: DIGOXIN 0.25 MG TAB PO SCH (08:33)
[2017-09-16] MEDS: DRONEDARONE 400 MG TAB PO SCH (08:33)
[2017-09-16] MEDS: FLUCONAZOLE 200 MG/100 ML 100 ML IV SCH (15:14)
[2017-09-16] MEDS: ENOXAPARIN SOD INJ 40 MG/0.4 ML SYR SC SCH (16:46)
[2017-09-16] MEDS: VANCOMYCIN 1GM/NS 250 ML 250 ML IV SCH (21:05)
[2017-09-16] MEDS: QUETIAPINE FUMARATE 25 MG TAB PO SCH (21:05)
[2017-09-17] VITALS (7 sets, daily range): BP systolic 125–138; BP diastolic 58–84
[2017-09-17] MEDS: HYDROMORPHONE 2MG/ML INJ IV PRN ×7 (00:20→21:38)
[2017-09-17] MEDS: ALBUTEROL/IPRATROPIUM 3 ML NEB NEB SCH ×4 (01:00→19:30)
[2017-09-17] MEDS: LEVOTHYROXINE SODIUM 25 MCG TABLET PO SCH (06:07)
[2017-09-17] MEDS: GABAPENTIN 300 MG CAP PO SCH ×2 (08:31→16:05)
[2017-09-17] MEDS: DIGOXIN 0.25 MG TAB PO SCH (08:31)
[2017-09-17] MEDS: LISINOPRIL 20 MG TAB PO SCH (08:31)
[2017-09-17] MEDS: DRONEDARONE 400 MG TAB PO SCH (08:31)
[2017-09-17] MEDS: NYSTATIN/TRIAMCINOLONE 15 GM CR TOP SCH (08:31)
[2017-09-17] MEDS: HYDROCORTISONE SOD SUCCINATE 100 MG VIAL IV SCH (08:31)
[2017-09-17] MEDS: POLYETHYLENE GLYCOL 3350 17 GM PACK PO SCH (08:31)
[2017-09-17] MEDS: FAMOTIDINE 20 MG TAB PO SCH ×2 (08:31→16:05)
[2017-09-17] MEDS: FUROSEMIDE INJ 10 MG/ML 4 ML VIAL IV SCH ×2 (08:31→21:00)
[2017-09-17] MEDS: INSULIN DETEMIR 100 UNIT/ML PEN SQ SCH (08:32)
[2017-09-17] MEDS: INSULIN REGULAR, HUMAN 100 UNIT/1 ML 3ML VIAL SQ SCH ×4 (08:32→21:37)
[2017-09-17] MEDS: FLUCONAZOLE 200 MG/100 ML 100 ML IV SCH (14:01)
[2017-09-17] MEDS: VANCOMYCIN 1GM/NS 250 ML 250 ML IV SCH (21:36)
[2017-09-17] MEDS: QUETIAPINE FUMARATE 25 MG TAB PO SCH (21:37)
[2017-09-18] VITALS (8 sets, daily range): BP systolic 102–156; BP diastolic 54–88
[2017-09-18] MEDS: ALBUTEROL/IPRATROPIUM 3 ML NEB NEB SCH ×4 (00:30→19:45)
[2017-09-18] MEDS: HYDROMORPHONE 2MG/ML INJ IV PRN ×7 (01:00→23:50)
[2017-09-18] MEDS: LEVOTHYROXINE SODIUM 25 MCG TABLET PO SCH (06:28)
[2017-09-18 06:57] LABS: BASOPHILS % 0.4 % (0.0-1.0); EOSINOPHILS # (AUTO) 0.2 (0.0-0.4); EOSINOPHILS % 2.7 % (0.0-6.0); HEMATOCRIT 39.5 % (38.2-49.6); HEMOGLOBIN 12.6 g/dL (14.0-18.0); LYMPHOCYTES # (AUTO) 2.4 (1.0-3.2); MEAN CORPUSCULAR HEMOGLOBIN 31.7 pg (28-32); MEAN CORPUSCULAR HGB CONC 31.9 g/dL (31-35); MEAN CORPUSCULAR VOLUME 99.5 fL (81-99); MONOCYTES % 12.4 % (4.4-11.3); NEUTROPHILS # (AUTO) 4.4 (2.1-6.9); NEUTROPHILS % 52.8 % (38.7-80.0); PLATELET COUNT 182 x10e3/uL (140-360); RED BLOOD COUNT 3.97 x10e6/uL (4.3-5.7); RED CELL DISTRIBUTION WIDTH 17.2 % (11.7-14.4)
[2017-09-18 07:25] LABS: ANION GAP 13.5 mmol/L (8-16); CALCIUM 9.4 mg/dL (8.4-10.2); CREATININE, SERUM 1.2 mg/dL (0.72-1.25); POTASSIUM 4.5 mmol/L (3.5-5.1)
[2017-09-18] MEDS: INSULIN REGULAR, HUMAN 100 UNIT/1 ML 3ML VIAL SQ SCH ×4 (07:30→21:33)
[2017-09-18 08:21] LABS: EOSINOPHILS % (MANUAL) 3 % (0-7); LYMPHOCYTES % (MANUAL) 23 % (19-48); METAMYELOCYTES % (MANUAL) 1 % (0-0); MONOCYTES % (MANUAL) 12 % (3.4-9.0); MYELOCYTES % (MANUAL) 1 % (0-0); NEUTROPHILS % (MANUAL) 57 % (40-74)
[2017-09-18 08:22] LABS: ANISOCYTOSIS SLIGHT; PLATELET ESTIMATE ADEQUATE; PLATELET MORPHOLOGY COMMENT FEW LARGE; RBC MORPHOLOGY COMMENT NORMAL
[2017-09-18] MEDS: FAMOTIDINE 20 MG TAB PO SCH ×2 (09:30→16:12)
[2017-09-18] MEDS: POLYETHYLENE GLYCOL 3350 17 GM PACK PO SCH (09:54)
[2017-09-18] MEDS: LISINOPRIL 20 MG TAB PO SCH (09:54)
[2017-09-18] MEDS: HYDROCORTISONE SOD SUCCINATE 100 MG VIAL IV SCH (09:54)
[2017-09-18] MEDS: DRONEDARONE 400 MG TAB PO SCH (09:54)
[2017-09-18] MEDS: DIGOXIN 0.25 MG TAB PO SCH (09:54)
[2017-09-18] MEDS: FUROSEMIDE INJ 10 MG/ML 4 ML VIAL IV SCH ×2 (09:54→21:00)
[2017-09-18] MEDS: NYSTATIN/TRIAMCINOLONE 15 GM CR TOP SCH (09:54)
[2017-09-18] MEDS: GABAPENTIN 300 MG CAP PO SCH ×2 (09:54→16:13)
[2017-09-18] MEDS: INSULIN DETEMIR 100 UNIT/ML PEN SQ SCH (09:56)
[2017-09-18] MEDS: FLUCONAZOLE 200 MG/100 ML 100 ML IV SCH (15:00)
[2017-09-18] MEDS: VANCOMYCIN 1GM/NS 250 ML 250 ML IV SCH (21:31)
[2017-09-18] MEDS: QUETIAPINE FUMARATE 25 MG TAB PO SCH (21:31)
[2017-09-19] VITALS (8 sets, daily range): BP systolic 109–142; BP diastolic 57–74
[2017-09-19] MEDS: CEFEPIME HCL 1 GM VIAL IV SCH ×3 (01:26→15:00)
[2017-09-19] MEDS: HYDROMORPHONE 2MG/ML INJ IV PRN (03:27)
[2017-09-19] MEDS: LEVOTHYROXINE SODIUM 25 MCG TABLET PO SCH (05:38)
[2017-09-19] MEDS ORDERED: HYDROMORPHONE 1MG/1ML INJ ONE (06:32)
[2017-09-19] MEDS: HYDROMORPHONE 1MG/1ML INJ IV PRN ×6 (06:44→23:58)
[2017-09-19] MEDS: INSULIN REGULAR, HUMAN 100 UNIT/1 ML 3ML VIAL SQ SCH ×4 (07:30→21:40)
[2017-09-19] MEDS: INSULIN DETEMIR 100 UNIT/ML PEN SQ SCH (07:30)
[2017-09-19] MEDS: ALBUTEROL/IPRATROPIUM 3 ML NEB NEB SCH ×5 (08:12→23:55)
[2017-09-19] MEDS: NYSTATIN 15 GM POWDER UD BTL TOP SCH ×2 (08:29→17:16)
[2017-09-19] MEDS: FAMOTIDINE 20 MG TAB PO SCH ×2 (08:58→17:16)
[2017-09-19] MEDS: FUROSEMIDE INJ 10 MG/ML 4 ML VIAL IV SCH ×2 (08:58→21:00)
[2017-09-19] MEDS: HYDROCORTISONE SOD SUCCINATE 100 MG VIAL IV SCH (08:58)
[2017-09-19] MEDS: DIGOXIN 0.25 MG TAB PO SCH (08:59)
[2017-09-19] MEDS: GABAPENTIN 300 MG CAP PO SCH ×2 (08:59→17:16)
[2017-09-19] MEDS: DRONEDARONE 400 MG TAB PO SCH (08:59)
[2017-09-19] MEDS: NYSTATIN/TRIAMCINOLONE 15 GM CR TOP SCH (08:59)
[2017-09-19] MEDS: POLYETHYLENE GLYCOL 3350 17 GM PACK PO SCH (08:59)
[2017-09-19] MEDS: LISINOPRIL 20 MG TAB PO SCH (08:59)
[2017-09-19] MEDS ORDERED: MAGNESIUM HYDROXIDE 30 ML UDC PO PRN (14:15)
[2017-09-19] MEDS: FLUCONAZOLE 200 MG/100 ML 100 ML IV SCH (15:00)
--- NOTE | 2017-09-19 16:52 | Diagnostic Imaging Report ---
PROCEDURE: Frontal and lateral views of the chest. COMPARISON: Chest radiograph 09/08/2017 INDICATIONS: COPD, CONGESTION FINDINGS: Body habitus limits evaluation. Lines/tubes: None. Lungs: The lungs are well inflated and clear. There is no evidence of pneumonia or pulmonary edema. Pleura: There is no pleural effusion or pneumothorax. Heart and mediastinum: The heart and the mediastinum are normal. Bones: No acute bony abnormality. IMPRESSION: No acute cardiopulmonary disease. Dictated by: Jenaro Real M.D. on 09/19/2017 at 16:52 Electronically approved by: Jenaro Real M.D. on 09/19/2017 at 16:52
[2017-09-19] MEDS ORDERED: ENOXAPARIN SOD INJ 40 MG/0.4 ML SYR SC SCH (17:00)
[2017-09-19] MEDS: VANCOMYCIN 1GM/NS 250 ML 250 ML IV SCH (21:09)
[2017-09-19] MEDS: QUETIAPINE FUMARATE 25 MG TAB PO SCH (21:48)
[2017-09-20] VITALS: BP 130/60
[2017-09-20] MEDS: CEFEPIME HCL 1 GM VIAL IV SCH ×2 (02:37→15:02)
[2017-09-20 04:00] VITALS: BP 125/60
[2017-09-20] MEDS: LEVOTHYROXINE SODIUM 25 MCG TABLET PO SCH (06:05)
[2017-09-20] MEDS: HYDROMORPHONE 1MG/1ML INJ IV PRN ×3 (06:34→14:51)
[2017-09-20] MEDS: ALBUTEROL/IPRATROPIUM 3 ML NEB NEB SCH ×2 (07:00→13:00)
[2017-09-20 07:20] VITALS: BP 142/64
[2017-09-20] MEDS: INSULIN DETEMIR 100 UNIT/ML PEN SQ SCH (07:30)
[2017-09-20] MEDS: INSULIN REGULAR, HUMAN 100 UNIT/1 ML 3ML VIAL SQ SCH ×2 (07:30→11:30)
[2017-09-20 07:53] VITALS: BP 142/64
[2017-09-20] MEDS: NYSTATIN 15 GM POWDER UD BTL TOP SCH (08:39)
[2017-09-20] MEDS: POLYETHYLENE GLYCOL 3350 17 GM PACK PO SCH (08:39)
[2017-09-20] MEDS: FUROSEMIDE INJ 10 MG/ML 4 ML VIAL IV SCH (08:39)
[2017-09-20] MEDS: FAMOTIDINE 20 MG TAB PO SCH (08:39)
[2017-09-20] MEDS: LISINOPRIL 20 MG TAB PO SCH (08:39)
[2017-09-20] MEDS: DRONEDARONE 400 MG TAB PO SCH (08:39)
[2017-09-20] MEDS: DIGOXIN 0.25 MG TAB PO SCH (08:39)
[2017-09-20] MEDS: GABAPENTIN 300 MG CAP PO SCH (08:39)
[2017-09-20] MEDS: HYDROCORTISONE SOD SUCCINATE 100 MG VIAL IV SCH (08:39)
[2017-09-20] MEDS: NYSTATIN/TRIAMCINOLONE 15 GM CR TOP SCH (08:40)
[2017-09-20 11:51] VITALS: BP 119/55
[2017-09-20 15:00] VITALS: BP 138/60
== END 2017-09-20 16:14 | DRG 189 ==
LOC: ER 11:34 → ERHOLD 16:13 → IMCU 17:11 → OBSVTOIN 18:40 → MED/SURG3 23:02
PROVIDERS: ADMIT Internal Medicine; ATTEND Internal Medicine
PROC: 02HV33Z Insertion of Infusion Device into Superior Vena Cava, Percutaneous Approach (ICD-10-PCS; principal; 2017-09-18)
DX: J96.21 Acute and chronic respiratory failure with hypoxia (principal); I50.33 Acute on chronic diastolic (congestive) heart failure; E66.2 Morbid (severe) obesity with alveolar hypoventilation; E11.65 Type 2 diabetes mellitus with hyperglycemia; Z68.43 Body mass index [BMI] 50.0-59.9, adult; J44.1 Chronic obstructive pulmonary disease with (acute) exacerbation; N39.0 Urinary tract infection, site not specified; L03.311 Cellulitis of abdominal wall; G47.33 Obstructive sleep apnea (adult) (pediatric); M79.3 Panniculitis, unspecified; B37.2 Candidiasis of skin and nail; L40.8 Other psoriasis; L21.9 Seborrheic dermatitis, unspecified; R46.0 Very low level of personal hygiene; I11.0 Hypertensive heart disease with heart failure; I89.0 Lymphedema, not elsewhere classified; B96.4 Proteus (mirabilis) (morganii) as the cause of diseases classified elsewhere; B95.62 Methicillin resistant Staphylococcus aureus infection as the cause of diseases classified elsewhere; Z79.4 Long term (current) use of insulin; B96.20 Unspecified Escherichia coli [E. coli] as the cause of diseases classified elsewhere; L98.492 Non-pressure chronic ulcer of skin of other sites with fat layer exposed
CPT/HCPCS: 36415; 71045; 71046; 80048; 80053; 80202; 81001; 82948; 83735; 83880; 85025; 85610; 85730; 87040; 87071; 87086; 87186; 87205; 93005; 94640; 94660; 96367; 96372; 96375; 96376; 97139; 99284; J0692; J1170; J1450; J1650; J1720; J1815; J1940; J1956; J2405; J2920; J3370; J7030

== ENCOUNTER 2018-01-05 11:00 | Emergency (ER) | payer MEDICARE ==
[~2018-01-05] VITALS: Ht 172.7 cm; Wt 158.8 kg
[~2018-01-05 11:00] MED LIST changes: +ELIQUIS PO; +NORCO 10-325 T1 EACH PO; +NOVOLOG MI100 UNIT/1 SQ
--- OUTSIDE RECORDS SUMMARY | 2018-01-05 11:03 | XMS REPORT | Continuity of Care Document ---
Author Author [facility] Organization [facility] Address [address] [place] [address] Phone Unavailable Care Team Providers Care Layout Mechanic Name Role Phone NO, PCP PCP Unavailable Insurance Providers Guarantor Richi Wolf Address [address] [place] [address] Email NONE Payer [employer] Medicare Replacement Policy Number [id number] Subscriber's Name Richi Wolf Relationship 18 Self / Same As Patient Group Number [id number] Group Name [employer]MO [employer]ER Effective Date 13 Advance Directives Directive Response Recorded Date/Time Does the patient have an advance directive? No 09/08/17 7:08pm If yes, is advance directive on file with [facility]? No 09/08/17 7:08pm If not on file with [facility] will patient provide a copy? No 09/08/17 7:08pm Do you have a Directive to Physician? No 09/08/17 1:43pm Do you have a Medical Power of Franchise Broker? No 09/08/17 1:43pm Do you have an out of hospital Do Not Resuscitate Order? No 09/08/17 1:43pm Do you have any special needs we should be aware of? No 09/08/17 1:43pm Do you have a support person here with you today? No 09/08/17 1:43pm Did patient receive Notice of Privacy Practices? Yes 09/08/17 1:43pm Did patient receive patient rights and responsibilities? Yes 09/08/17 1:43pm Problems Medical Problem Onset Date Status COPD exacerbation Unknown UTI (urinary tract infection) Unknown Medications Current Home Medications Medication Dose Units Route Directions Days Qty Instructions Start Date Digoxin 250 Mcg Tablet 250 Mcg Oral Daily Dronedarone Hydrochloride (Multaq) 400 Mg Tablet 400 Mg Oral Daily Eliquis Unknown Dose Oral Daily Furosemide (Lasix) 40 Mg Tablet 20 Mg Oral Twice A Day Gabapentin (Neurontin) 300 Mg Capsule 300 Mg Oral Twice A Day Hydrocodone Bit/Acetaminophen (Dyer 10-325 Tablet) 1 Each Tablet 1 Tab Oral Every 4 Hours Insulin Detemir (Levemir 10ML Vial) 100 Unit/1 Ml Vial 60 Subcutaneously Bedtime Insulin Detemir (Levemir 3ML Flexpen) 100 Units/Ml Inj 60 Units Sub-Q Before Breakfast every AM Insuln Asp Prt/Insulin Aspart (Novolog Mix 70-30 Flexpen Syrn) 100 Unit/1 Ml Insuln.pen 50 Unit Sub-Q Three Times A Day Levothyroxine Sodium 25 Mcg Tablet 25 Mcg Oral Daily Lisinopril 20 Mg Tablet 20 Mg Oral Daily Quetiapine Fumarate (Seroquel) 25 Mg Tablet 25 Mg Oral Bedtime Past Home Medications Medication Directions Ordered Status Alprazolam (Xanax) 0.5 Mg Tablet, 0.5 Mg Oral Three Times A Day as needed Discontinued Benzonatate (Tessalon Perle) 100 Mg Capsule, Three Times A Day Discontinued Budesonide/Formoterol Fumarate (Symbicort 160-4.5 Mcg Inhaler) 10.2 Gm Hfa.aer.ad, 10.2 GmInhalation Twice A Day Discontinued Budesonide/Formoterol Fumarate (Symbicort 160-4.5 Mcg Inhaler) 6 Gm Hfa.aer.ad , 6 Gm Inhalation Twice A Day Discontinued Furosemide 40 Mg Tablet, 40 Mg Oral As Needed Discontinued Insulin Glargine,Hum.rec.anlog (Lantus) 100 Unit/1 Ml Vial, 24 Unit Sub-Q Every Morning Discontinued Insulin Lispro (Humalog) 100 Unit/1 Ml Vial, 16 Units Sub-Q Before Meals Discontinued Levofloxacin (Levaquin) 500 Mg Tablet, 500 Mg Oral Daily Discontinued Metformin Hcl (Glucophage) 500 Mg Tablet, 1000 Mg Oral Twice A Day Discontinued Pramlintide Acetate (Symlin) 600 Mcg/1 Ml Vial, 120 Mcg Sub-Q Three Times A Day Discontinued Risperidone (Risperdal) 4 Mg Tablet, 0.5 Mg Oral Bedtime Discontinued Sotalol Hcl (Sotalol) 80 Mg Tablet, 80 Mg Oral Twice A Day Discontinued Warfarin Sodium (Coumadin) 10 Mg Tablet, 10 Mg Oral Daily Discontinued Social History Social History Problem Response Recorded Date/Time Onset Date Status Hx Psychiatric Problems No 09/08/2017 7:08pm Not Applicable Not Applicable Hx Eating Disorder No 09/08/2017 7:08pm Not Applicable Not Applicable Hx Substance Use Disorder No 09/08/2017 7:08pm Not Applicable Not Applicable Hx Depression Yes 09/08/2017 7:08pm Not Applicable Not Applicable Hx Alcohol Use No 09/08/2017 7:08pm Not Applicable Not Applicable Hx Substance Use Treatment No 09/08/2017 7:08pm Not Applicable Not Applicable Hx Physical Abuse No 09/08/2017 7:08pm Not Applicable Not Applicable Smoking Status Start Date Stop Date Unknown if ever smoked Hospital Discharge Instructions No hospital discharge instruction information available. Plan of Care Discharge Date 09/20/17 4:14pm Disposition [facility] Prescriptions See Medication Section Functional Status Query Response Date Recorded FUNCTIONAL STATUS . September 10, 2017 11:38am Ambulation Ability Total Assistance 3 or more person assist September 08, 2017 7:16pm Toileting Ability Minimum Assistance September 20, 2017 2:09pm Allergies, Adverse Reactions, Alerts Allergen Type Severity Reaction Status Last Updated Sulfa (Sulfonamide Antibiotics) Allergy Unknown Active 09/08/17 Fluconazole Allergy Unknown Active 09/08/17 Immunizations No immunization information available. Vital Signs Acute Vital Signs Vital Response Date/Time Temperature (Fahrenheit) 98.3 degrees F (97.6 - 99.5) 09/20/2017 3:00pm Pulse Pulse Rate (adult) 80 bpm (60 - 90) 09/20/2017 3:00pm Respiratory Rate 20 bpm (12 - 24) 09/20/2017 3:00pm Blood Pressure 138/60 mm Hg 09/20/2017 3:00pm Height 5 ft 8 in 09/08/2017 11:49am Weight 393.13 lb 09/19/2017 8:25am Body Mass Index 59.8 kg/m^2 09/19/2017 8:25am Results Laboratory Results Test Name Result Units Flags Reference Collection Date/Time Result Date/ Time Comments White Blood Count 8.30 x10e3/uL 4.8-10.8 09/18/2017 6:09/18/2017 7 :09am Red Blood Count 3.97 x10e6/uL L 4.3-5.7 09/18/2017 6:09/18/2017 7: 09am Hemoglobin 12.6 g/dL L 14.0-18.0 09/18/2017 6:09/18/2017 7:09am Hematocrit 39.5 % 38.2-49.6 09/18/2017 6:09/18/2017 7:09am Mean Corpuscular Volume 99.5 fL H 81-99 09/18/2017 6:09/18/2017 7: 09am Mean Corpuscular Hemoglobin 31.7 pg 28-32 09/18/2017 6:09/18/2017 7:09am Mean Corpuscular Hemoglobin Concent 31.9 g/dL 31-35 09/18/2017 6:09/18/2017 7:09am Red Cell Distribution Width 17.2 % H 11.7-14.4 09/18/2017 6:2017 7:09am Platelet Count 182 x10e3/uL 140-360 09/18/2017 6:09/18/2017 7: 09am Neutrophils (%) (Auto) 52.8 % 38.7-80.0 09/18/2017 6:09/18/2017 7: 09am Lymphocytes (%) (Auto) 29.0 % 18.0-39.1 09/18/2017 6:09/18/2017 7: 09am Monocytes (%) (Auto) 12.4 % H 4.4-11.3 09/18/2017 6:09/18/2017 7: 09am Eosinophils (%) (Auto) 2.7 % 0.0-6.0 09/18/2017 6:09/18/2017 7: 09am Basophils (%) (Auto) 0.4 % 0.0-1.0 09/18/2017 6:09/18/2017 7:09am IM GRANULOCYTES % 2.7 % H 0.0-1.0 09/18/2017 6:09/18/2017 7:09am Neutrophils # (Auto) 4.4 2.1-6.9 09/18/2017 6:09/18/2017 7:09am Lymphocytes # (Auto) 2.4 1.0-3.2 09/18/2017 6:09/18/2017 7:09am Monocytes # (Auto) 1.0 H 0.2-0.8 09/18/2017 6:09/18/2017 7:09am Eosinophils # (Auto) 0.2 0.0-0.4 09/18/2017 6:09/18/2017 7:09am Basophils # (Auto) 0.0 0.0-0.1 09/18/2017 6:09/18/2017 7:09am Absolute Immature Granulocyte (auto 0.22 x10e3/uL H 0-0.1 09/18/2017 6: 09/18/2017 7:09am Differential Total Cells Counted 100 09/18/2017 6:09/18/2017 8 :22am Neutrophils % (Manual) 57 % 40-74 09/18/2017 6:09/18/2017 8:22am Lymphocytes % (Manual) 23 % 19-48 09/18/2017 6:09/18/2017 8:22am Monocytes % (Manual) 12 % H 3.4-9.0 09/18/2017 6:09/18/2017 8:22am Eosinophils % (Manual) 3 % 0-7 09/18/2017 6:09/18/2017 8:22am Basophils % (Manual) 1 % 0-1.5 09/18/2017 6:09/18/2017 8:22am Metamyelocytes % 1 % H 0-0 09/18/2017 6:09/18/2017 8:22am Myelocytes % 1 % H 0-0 09/18/2017 6:09/18/2017 8:22am Reactive Lymphocytes 2 09/18/2017 6:09/18/2017 8:22am Nucleated Red Blood Cells 1 09/13/2017 6:18am 09/13/2017 8:17am Platelet Estimate ADEQUATE 09/18/2017 6:16am 09/18/2017 8:22am Platelet Morphology Comment FEW LARGE 09/18/2017 6:16am 09/18/2017 8:22am Polychromasia FEW 09/14/2017 6:49am 09/14/2017 9:00am Hypochromasia SLIG 09/14/2017 6:49am 09/14/2017 9:00am Anisocytosis SLIGHT 09/18/2017 6:16am 09/18/2017 8:22am Microcytosis SLIG 09/14/2017 6:49am 09/14/2017 9:00am Red Cell Morphology Comment NORMAL 09/18/2017 6:16am 09/18/2017 8: 22am Prothrombin Time 14.5 seconds 11.9-14.5 09/08/2017 1:50pm 09/08/2017 2: 25pm Prothromb Time International Ratio 1.07 09/08/2017 1:50pm 2017 2:25pm Oral Anticoagulant Therapy INR Values: 1. Low Intensity Therapy 1.5 - 2.0 2. Moderate Intensity Therapy 2.0 - 3.0 3. High Intensity Therapy(1) 2.5 - 3.5 4. High Intensity Therapy(2) 3.0 - 4.0 5. Panic Value INR > 5.0 Activated Partial Thromboplast Time 36.7 seconds H 23.8-35.5 09/08/2017 1 :50pm 09/08/2017 2:25pm Urine Color YELLOW YELLOW 09/08/2017 2:30pm 09/08/2017 3:01pm Urine Clarity HAZY CLEAR 09/08/2017 2:30pm 09/08/2017 3:01pm Urine Specific [place] 1.015 1.010-1.025 09/08/2017 2:30pm 2017 3:01pm Urine pH 6.5 5 - 7 09/08/2017 2:30pm 09/08/2017 3:01pm Urine Leukocyte Esterase TRACE H NEGATIVE 09/08/2017 2:30pm 2017 3:01pm Urine Nitrite NEGATIVE NEGATIVE 09/08/2017 2:30pm 09/08/2017 3:01pm Urine Protein 1+ H NEGATIVE 09/08/2017 2:30pm 09/08/2017 3:01pm Urine Glucose (UA) TRACE H NEGATIVE 09/08/2017 2:30pm 09/08/2017 3: 01pm Urine Ketones TRACE H NEGATIVE 09/08/2017 2:30pm 09/08/2017 3:01pm Urine Urobilinogen 0.2 mg/dL 0.2 - 1 09/08/2017 2:30pm 09/08/2017 3: 01pm Urine Bilirubin 1+ H NEGATIVE 09/08/2017 2:30pm 09/08/2017 3:01pm Confirmatory test currently unavailable. False positive results may occur. Urine Blood 4+ H NEGATIVE 09/08/2017 2:30pm 09/08/2017 3:01pm Urine WBC 11-20 /HPF H 0-5 09/08/2017 2:30pm 09/08/2017 3:20pm Urine RBC 21-50 /HPF H 0-5 09/08/2017 2:30pm 09/08/2017 3:20pm Urine Bacteria FEW /HPF NONE 09/08/2017 2:30pm 09/08/2017 3:20pm Urine Epithelial Cells FEW /LPF NONE 09/08/2017 2:30pm 09/08/2017 3: 20pm Urine Amorphous Sediment FEW FEW 09/08/2017 2:30pm 09/08/2017 3:20pm Urine Coarse Granular Casts 1-5 H 0 09/08/2017 2:30pm 09/08/2017 3: 20pm Sodium Level 140 mmol/L 136-145 09/18/2017 6:16am 09/18/2017 7:25am Potassium Level 4.5 mmol/L 3.5-5.1 09/18/2017 6:16am 09/18/2017 7:25am Chloride Level 99 mmol/L 98-107 09/18/2017 6:16am 09/18/2017 7:25am Carbon Dioxide Level 32 mmol/L H 22-29 09/18/2017 6:16am 09/18/2017 7: 25am Anion Gap 13.5 mmol/L 8-16 09/18/2017 6:16am 09/18/2017 7:25am Blood Urea Nitrogen 22 mg/dL 7-09/18/2017 6:16am 09/18/2017 7:25am Creatinine 1.20 mg/dL 0.72-1.25 09/18/2017 6:16am 09/18/2017 7:25am BUN/Creatinine Ratio 18 6-25 09/18/2017 6:16am 09/18/2017 7:25am Estimat Glomerular Filtration Rate 60 ML/MIN 60- 09/18/2017 6:16am 7:25am Ranges were taken from the National Kidney Disease Education Program and the National Kid[employer] literature. Reference ranges: 60 or greater: Normal 16-59 (for 3 consecutive months): Chronic kidney disease 15 or less: Kidney failure Glucose Level 222 mg/dL H 74-118 09/18/2017 6:16am 09/18/2017 7:25am Calcium Level 9.4 mg/dL 8.4-10.2 09/18/2017 6:16am 09/18/2017 7:25am Bedside Glucose 176 mg/dL H 70-120 09/20/2017 7:37am 09/20/2017 7:47am Meter ID: [id number] Magnesium Level 1.7 MG/DL 1.3-2.1 09/10/2017 6:34am 09/10/2017 7:37am Total Bilirubin 0.8 mg/dL 0.2-1.2 09/13/2017 6:18am 09/13/2017 7:11am Aspartate Amino Transf (AST/SGOT) 43 IU/L H 5-34 09/13/2017 6:18am 09/13 7:11am Alanine Aminotransferase (ALT/SGPT) 37 IU/L 0-55 09/13/2017 6:18am 03/2018 7:11am Total Protein 6.5 g/dL 6.5-8.1 09/13/2017 6:18am 09/13/2017 7:11am Albumin 2.7 g/dL L 3.5-5.0 09/13/2017 6:18am 09/13/2017 7:11am Globulin 3.8 g/dL H 2.3-3.5 09/13/2017 6:18am 09/13/2017 7:11am Albumin/Globulin Ratio 0.7 L 0.8-2.0 09/13/2017 6:18am 09/13/2017 7: 11am Alkaline Phosphatase 59 IU/L 40-150 09/13/2017 6:1809/13/2017 7: 11am B-Type Natriuretic Peptide 36.8 pg/mL 0-100 09/08/2017 1:50pm 2017 2:37pm Random Vancomycin Level 19.6 ug/mL 09/11/2017 10:44am 09/11/2017 11: 52am Vancomycin Level Trough 10.4 ug/mL *H 5.0-10.0 09/19/2017 7:15pm 2017 7:57pm Results called to EDWIN BLOCK at 1956 on 09/19/17 by Yazan Tucker. RB [place]. Microbiology Results Procedure Source Organism/Result Collection Date/Time Result Date/Time Result Status Blood Culture Blood NO GROWTH AFTER 5 DAYS, FINAL REPORT 09/08/2017 1:50pm 09/13/2017 1:54pm Final Urine Culture Urine,Clean Catch ESCHERICHIA COLI 09/08/2017 2:30pm 2017 7:02am Final Wound Culture Abdomen STAPHYLOCOCCUS AUREUS-MRSA 09/08/2017 7:35pm 2017 6:40am Final PROTEUS VULGARIS 09/08/2017 7:35pm 09/12/2017 6:40am Final Procedures Procedure Status Date Provider(s) X-ray of chest, two views Active 09/19/17 MARCO KRUEGER MD Encounters Encounter Location Arrival/Admit Date Discharge/Depart Date Attending Provider Discharged Inpatient [facility] 09/08/17 6:40pm 09/20/17 4:14pm LANDON HUANG MD
[2018-01-05 11:39] LABS: BASOPHILS # (AUTO) 0.1 (0.0-0.1); BASOPHILS % 0.7 % (0.0-1.0); EOSINOPHILS # (AUTO) 0.2 (0.0-0.4); EOSINOPHILS % 1.6 % (0.0-6.0); HEMATOCRIT 40.3 % (38.2-49.6); HEMOGLOBIN 13.3 g/dL (14.0-18.0); LYMPHOCYTES # (AUTO) 1.5 (1.0-3.2); LYMPHOCYTES % 16.5 % (18.0-39.1); MEAN CORPUSCULAR HEMOGLOBIN 31.1 pg (28-32); MEAN CORPUSCULAR VOLUME 94.4 fL (81-99); MONOCYTES # (AUTO) 0.7 (0.2-0.8); MONOCYTES % 7.6 % (4.4-11.3); NEUTROPHILS # (AUTO) 6.5 (2.1-6.9); NEUTROPHILS % 71.7 % (38.7-80.0); PLATELET COUNT 337 x10e3/uL (140-360); RED BLOOD COUNT 4.27 x10e6/uL (4.3-5.7); RED CELL DISTRIBUTION WIDTH 15.7 % (11.7-14.4)
[2018-01-05 11:55] LABS: ALBUMIN 2.6 g/dL (3.5-5.0); ALBUMIN/GLOBULIN RATIO 0.5 (0.8-2.0); ANION GAP 13.3 mmol/L (8-16); CALCIUM 10.6 mg/dL (8.4-10.2); CREATININE, SERUM 1.76 mg/dL (0.72-1.25); POTASSIUM 3.3 mmol/L (3.5-5.1)
[2018-01-05 12:02] LABS: CREATINE KINASE MB 1.7 ng/mL (0-5.0)
--- NOTE | 2018-01-05 12:05 | Diagnostic Imaging Report ---
Examination: Single AP view of the chest. COMPARISON: Chest 2 views 09/19/2017 and portable chest 09/08/2017 INDICATION: Respiratory distress, shortness of breath IMPRESSION: Exam limited by soft tissue attenuation from patient's body habitus and patient rotation. 1. Lines and Tubes: None 2. Lungs are well-inflated. Questionable ill-defined patchy airspace opacity in the right upper lung. Patchy atelectatic changes in the right lower lung. Recommend chest PA and lateral for further evaluation, if clinically feasible 3. Prominent cardiac silhouette, which may be partly due to AP projection Pulmonary vasculature is normal. 4. No acute bony abnormalities. Signed by: Dr. Abdoulaye Valdez M.D. on 01/05/2018 12:01 PM
[2018-01-05] MEDS ORDERED: MORPHINE SULFATE 2 MG/ML SYR IV STA (12:09)
[2018-01-05] MEDS ORDERED: ONDANSETRON HCL INJ 2 MG/ML VIAL IV STA (12:09)
[2018-01-05 14:09] VITALS: BP 144/72
[2018-01-05 16:18] LABS: INR 1.03; PARTIAL THROMBOPLASTIN TIME 29.3 seconds (23.8-35.5); PROTHROMBIN TIME 11.2 seconds (11.9-14.5)
== END 2018-01-05 15:45 | disposition home or self-care (01) ==
LOC: ER 11:00
DX: R06.09 Other forms of dyspnea (principal); J44.1 Chronic obstructive pulmonary disease with (acute) exacerbation; E11.9 Type 2 diabetes mellitus without complications; I10 Essential (primary) hypertension; I48.91 Unspecified atrial fibrillation
CPT/HCPCS: 36415; 71045; 80053; 82550; 82553; 83880; 84484; 85025; 85610; 85730; 93005; 99284; J2270; J2405